=== PATIENT | female | born 1930 | race Caucasian/White ===

== ENCOUNTER 2020-12-12 09:23 | Outpatient (CLI) | payer MEDICARE ==
[~2020-12-12 09:23] MED LIST: "\\\"STATIN\\\""; AMLO-150 PO; ATOR20TA86 PO; CIPR7.5D LEFT EAR; DORZ10DR27 RIGHTEYE; FURO-93 PO; LASIX PO; LATA7.5D EACHEYE; LEVO75TA PO; LEVOTHYROXINE; LISI-170 PO; MECL-101 PO; VITAMIN D
[2020-12-12 10:00] LABS: ALANINE AMINOTRANSFERASE 18 U/L (12-78); ALBUMIN 3.3 g/dL (3.4-5.0); CALCIUM 9.9 mg/dL (8.5-10.1); CHLORIDE 107 mmol/L (98-107); CHOLESTEROL, TOTAL 174 mg/dL (140-239); CREATININE 0.95 mg/dL (0.55-1.02)
[2020-12-12 10:03] LABS: ALKALINE PHOSPHATASE 127 U/L (45-117); BILIRUBIN,TOTAL 0.8 mg/dL (0.2-1.0); CHOL/HDL RATIO 2.8; HDL CHOL % 36 % (28-40); HDL CHOLESTEROL (DIRECT) 62 mg/dL (40-60); LDL CHOLESTEROL,CALCULATED 84 mg/dL (54-169); LDL/HDL RATIO 1.4 (0.5-3.0); TOTAL PROTEIN 6.9 g/dL (6.4-8.2); TRIGLYCERIDES 141 mg/dL (50-200); VLDL CHOLESTEROL 28 mg/dL (0-25)
[2020-12-12 10:12] LABS: ANION GAP 2 mmol/L (5-15)
== END 2020-12-12 23:59 | disposition home or self-care (01) ==
LOC: LAB 09:23
PROVIDERS: ATTEND Internal Medicine Cardiovascular Disease
DX: I11.0 Hypertensive heart disease with heart failure (principal); I50.9 Heart failure, unspecified; E78.2 Mixed hyperlipidemia; I50.20 Unspecified systolic (congestive) heart failure; D75.1 Secondary polycythemia; H81.10 Benign paroxysmal vertigo, unspecified ear; I48.91 Unspecified atrial fibrillation; R00.1 Bradycardia, unspecified; R17 Unspecified jaundice
CPT/HCPCS: 36415; 80053; 80061